=== PATIENT | female | born 1950 | race Caucasian/White ===

== ENCOUNTER → 2022-09-20 10:06 | Outpatient (BNVA) | payer OTHER, SELFPAY | PROVIDERS: Visit Provider Student in an Organized Health Care Education/Training Program | DX: M19.011 Primary osteoarthritis, right shoulder (principal); M75.41 Impingement syndrome of right shoulder | CPT/HCPCS: 73030 ==

== ENCOUNTER 2023-01-17 13:19 | Outpatient (CLI) | payer MEDICARE, SELFPAY ==
--- NOTE | 2023-01-17 14:30 | MR_ITS ---
WS: [id number] MRI RIGHT SHOULDER HISTORY: shoulder pain COMPARISON: Radiograph 09/20/2022 TECHNIQUE: Multiplanar sequences of the shoulder joint are submitted. Moderate AC joint arthritis. Osteophyte encroachment upon the supraspinatus myotendinous insertion si te. Very minimal subacromial impingement from an osteophyte along the undersurface of the acromion. S mall amount of fluid in the subacromial and subdeltoid bursa. Normal biceps tendon. No os acromion. No significant rotator cuff muscle atrophy and no edema. There is very slight atrophy of the supraspi natus but only minimal. There is mild tendinopathy in the supraspinatus tendon but no full-thickness tear is identified. There is moderate narrowing coracohumeral interval. Encroachment upon the distal subscapularis tendon with mild tendinopathy. Infraspinatus tendon is intact. No labral tear. There is increased T2 signal within the labrum from intrasubstance degeneration. MR/MR shoulder RT wo con* [id number] IMPRESSION: 1. Moderate AC joint arthritis with encroachment upon the supraspinatus myoten dinous insertion. 2. Mild subacromial impingement. 3. Moderate narrowing of the coracohumeral interval with encroachment upon the subscapularis tendon. 4. There is increased T2 signal and thickening of the supraspinatus tendon ass ociated with the coracohumeral interval narrowing. Favor tendinopathy versus te ndon tear. 5. Very minimal atrophy of the supraspinatus muscle with mild distal tendinopa thy.
== END 2023-01-17 13:20 | disposition home or self-care (01) ==
PROVIDERS: PCP Family Medicine; Visit Provider Student in an Organized Health Care Education/Training Program
DX: M75.41 Impingement syndrome of right shoulder (principal); M19.011 Primary osteoarthritis, right shoulder; M62.511 Muscle wasting and atrophy, not elsewhere classified, right shoulder
CPT/HCPCS: 73221

== ENCOUNTER → 2023-02-18 10:02 | Outpatient (BNVA) | payer MEDICARE, SELFPAY | PROVIDERS: PCP Family Medicine; Visit Provider Student in an Organized Health Care Education/Training Program | DX: M75.41 Impingement syndrome of right shoulder (principal); M19.011 Primary osteoarthritis, right shoulder | CPT/HCPCS: 20610; 99213; J3301 ==

== ENCOUNTER 2023-03-11 14:07 | Outpatient (RCR) | payer MEDICARE, SELFPAY | END 2023-03-20 23:59 | disposition home or self-care (01) | LOC: WPT 14:07 | PROVIDERS: Visit Provider Student in an Organized Health Care Education/Training Program | DX: M25.511 Pain in right shoulder (principal) | CPT/HCPCS: 97110; 97112; 97140; 97161; 97530 ==

== ENCOUNTER 2023-03-21 06:00 | Outpatient (RCR) | payer MEDICARE, SELFPAY | END 2023-04-19 23:59 | disposition home or self-care (01) | LOC: WPT 06:00 | PROVIDERS: Visit Provider Student in an Organized Health Care Education/Training Program | DX: M25.511 Pain in right shoulder (principal) | CPT/HCPCS: 97110; 97112; 97140; 97530 ==

== ENCOUNTER → 2023-04-02 09:13 | Outpatient (BNVA) | payer MEDICARE, SELFPAY | PROVIDERS: Visit Provider Nurse Practitioner Family | DX: S83.92XA Sprain of unspecified site of left knee, initial encounter (principal); X58.XXXA Exposure to other specified factors, initial encounter; M17.12 Unilateral primary osteoarthritis, left knee | CPT/HCPCS: 73562 ==

== ENCOUNTER 2023-04-20 06:00 | Outpatient (RCR) | payer MEDICARE, SELFPAY | END 2023-05-20 23:59 | disposition home or self-care (01) | LOC: WPT 06:00 | PROVIDERS: Visit Provider Student in an Organized Health Care Education/Training Program | DX: M25.511 Pain in right shoulder (principal) | CPT/HCPCS: 97110; 97112; 97530 ==

== ENCOUNTER 2023-12-05 06:31 | Outpatient (CLI) | payer MEDICARE, SELFPAY ==
--- NOTE | 2023-12-05 06:41 | MR_ITS ---
WS: [id number] MRI BRAIN WITH HIGH-RESOLUTION IMAGING THROUGH THE INTERNAL AUDITORY CANALS WITHOUT AND WITH CONTRAST HISTORY: mixed conductive and sensorineural hearing loss COMPARISON: None available. TECHNIQUE: Multiplanar, multisequence imaging is performed through the brain. Additional 3 mm imaging performed in multiple planes through the internal auditory canal. Postcontrast imaging with 16 ml's of MultiHance. No acute intracranial hemorrhage, midline shift, edema or mass effect. Very mild symmetric atrophy and small vessel ischemic disease. No prior infarct. Posterior fossa and the jazzmine are negative. Ventricles and extra-axial spaces are normal. No inferior displacement of cerebellar tonsils. Clivus and pituitary gland are normal. Internal and external auditory canals: No masses or mass effect. Normal signal. Cranial nerves VII and VIII complexes: Unremarkable. No enhancement or mass. Cerebellopontine angles: Normal. Paranasal sinuses: Normal. Mastoid air cells: Normal. Calvarium and scalp: Normal. Visualized [place] and dural venous sinuses demonstrate no abnormality. MR/MR iac's wo/w con* [id number] IMPRESSION: 1. Unremarkable appearance of the internal auditory canals. There are no bret s or abnormal enhancement. No signal abnormality. 2. Mild cerebral atrophy with mild small vessel ischemic disease. No prior inf arct. 3. Normal ventricles.
[2023-12-05] MEDS: gadobenate dimeglumine 20 mL vial IV (07:32)
== END 2023-12-05 06:32 | disposition home or self-care (01) ==
LOC: RAD 06:31
PROVIDERS: Visit Provider Specialist
DX: H90.5 Unspecified sensorineural hearing loss (principal)
CPT/HCPCS: 70553; A9577